=== PATIENT | male | born 1980 | race Caucasian/White ===

== ENCOUNTER 2017-02-11 16:25 | Inpatient (IN) | payer OTHER ==
--- NOTE | ~2017-02-11 | HP ---
Unit #: [id number] #: [id number] Patient: GIORGIO CHÁVEZ [id number] [place] [address] [id number] MR#: [id number] NAME: GIORGIO CHÁVEZ. ROOM: P125 Age: 36 Sex: M Admission Date: 02/11/2017 : 1980 Attending Physician: Jose Enrique Birch M.D. Admitting Physician: Jose Enrique Birch M.D. Primary Care Physician: Primary Care Physician No HISTORY AND PHYSICAL HISTORY OF PRESENT ILLNESS Giorgio is a 36 year old admitted to [address] [place] [address] with depression and verbalizing wanting to hurt himself. He has had other admissions to this facility for the treatment of the same. PAST MEDICAL HISTORY 1. History of migraines 2. History of genital herpes PAST SURGICAL HISTORY Nothing reported. ALLERGIES No known drug allergies. SOCIAL HISTORY Smokes one pack per day. Drinks alcohol rarely. Admits to using marijuana frequently. FAMILY HISTORY Medically noncontributory. REVIEW OF SYSTEMS He does not answer questions appropriately. There are no reports of nausea, vomiting or diarrhea. He has had no cough or increased temperature. CURRENT MEDICATIONS 1. Desyrel 50 mg q.h.s. 2. Topamax 50 mg b.i.d. 3. Zyprexa 10 mg b.i.d. 4. Neurontin 300 mg b.i.d. 5. Milk of Magnesia p.r.n. 6. Maalox p.r.n. 7. Tylenol p.r.n. 8. Nicotine patch 14 mg daily 9. Valtrex 1000 mg daily PHYSICAL EXAMINATION GENERAL: Alert, well-nourished, in no apparent distress. VITAL SIGNS: Blood pressure 110/70, heart rate 80, respirations 16, temperature 98.6. Unit #: [id number] #: [id number] Patient: GIORGIO CHÁVEZ WEIGHT: 184 pounds. HEIGHT: 5'11". SKIN: Warm and dry without rash or lesion. HEENT: Normocephalic. TMs not viewed. Oral and nasal passages clear. Conjunctivae clear. Pupils equal, round and reactive to light and accommodation. Extraocular movements intact. NECK: Supple without lymphadenopathy or thyromegaly. HEART: Regular rate and rhythm without murmur. LUNGS: Clear. ABDOMEN: Soft, nontender. : Not done. EXTREMITIES: No evidence of cyanosis, clubbing or edema. Moves all extremities without focal deficit. NEUROLOGICAL: Grossly within normal limits. Cranial Nerves: II: Visual ayala are intact. III, IV AND : Extraocular movements are intact. Pupils are equal, round and reactive to light. V: Facial sensation is grossly normal. VII: Facial movements and expression are normal. VIII: Auditory acuity grossly intact. IX, X: Uvula is midline. Phonation is normal. XI: Patient shrugs shoulders and turns head normally. XII: Tongue protrudes in the midline. Sensory and Motor Function: Sensory and motor sensation is grossly normal. Motor: moves all extremities well. Coordination: Gait is normal. Deep Tendon Reflexes: Intact. IMPRESSION Psychiatric admission RECOMMENDATIONS PSYCHIATRIC: Per psychiatrist. MEDICAL: I see no contraindications to participating in facility's activities. MEDICAL PROGNOSIS Good. MEDICAL CONDITION Stable. Dictated by... Loree Luna P.A.-C. for Cindi Vicente/luz marina TD: 02/12/2017 19:29 JOB #: [id number] Unit #: [id number] #: [id number] Patient: GIORGIO CHÁVEZ HISTORY AND PHYSICAL Page 1 of 1 X Loree Luna HISTORY AND PHYSICAL
--- NOTE | ~2017-02-11 | DS ---
Unit #: [id number] #: [id number] Patient: SCOTTIE GUADALUPE [id number] [facility] [place] [address] [id number] I MR#: [id number] NAME: SCOTTIE GUADALUPE. ROOM: P263 Age: 36 Sex: M Admission Date: 02/11/2017 : 1980 Discharge Date: 02/17/2017 Attending Physician: Jose Enrique Birch M.D. DISCHARGE SUMMARY IDENTIFYING DATA Mr. Guadalupe is a 36-year-old single white male, who is known to us from previous encounter and is a resident of [place], [place], and was transferred to us from [facility]. DISCHARGE DIAGNOSES Psychiatric: Bipolar disorder, most recent episode depressed, recurrent, moderate, without psychotic features; alcohol abuse, moderate; and cannabis abuse, moderate. Medical: Migraine headaches and genital herpes. Stressors: Moderate psychosocial stressors. HISTORY OF PRESENT ILLNESS Please see initial psychiatric evaluation for details. PAST PSYCHIATRIC HISTORY Please see initial psychiatric evaluation for details. PAST MEDICAL HISTORY Please see initial psychiatric evaluation for details. HOSPITAL COURSE The patient was admitted to the adult psychiatric unit at [facility] [place] and was oriented to the hospital environment. Routine p.r.n. medications were initiated, and he was started back on his home medications and medications were adjusted as the patient was exhibiting some significant anger, agitation, and irritability, and Zyprexa was maintained, but he was talking about significant depression and social anxiety and as such Paxil was initiated and he was closely monitored. He was initially seen to be very withdrawn, seclusive to himself, and showing significant depressive symptoms, but was cooperative with the treatment and did not show any agitation or aggression at this around, which really has been a typical hallmark of his presentation during previous hospitalization. He was taking the medications regularly and was tolerating them fairly well and was able to show a decent and therapeutic response and as such, it was decided that he will be discharged home and will continue treatment on an outpatient basis. DISCHARGE MEDICATIONS Zyprexa 10 mg b.i.d. for mood disorder and Paxil 20 mg in the morning for depression. DISCHARGE CONDITION Unit #: [id number] #: [id number] Patient: SCOTTIE GUADALUPE Stable. PROGNOSIS Fair. Dictated by... Cindi Barclay/justyna TD: 02/17/2017 19:16 JOB #: [id number] DISCHARGE SUMMARY Page 1 of 1 X Jose Enrique Birch MD X DISCHARGE SUMMARY
--- NOTE | ~2017-02-11 | PN ---
Unit #: [id number] #: [id number] Patient: SCOTTIE GUADALUPE [id number] [facility] [address] [place] [address] [id number] I MR#: [id number] NAME: SCOTTIE GUADALUPE. ROOM: 63 Age: 36 Sex: M Admission Date: 02/11/2017 : 1980 Attending Physician: Jose Enrique Birch M.D. Admitting Physician: Jose Enrique Birch M.D. Primary Care Physician: Primary Care Physician [place] PRITCHARD PROGRESS NOTES DATE OF SERVICE 02/15/2017 DISCUSSION Mr. Guadalupe is a 36-year-old white male who was seen today. Chart was reviewed and case was discussed with the staff. She has been anxious, withdrawn, and has not shown any agitation or irritability and has been cooperative with treatment recommendations as she has been taking the medications and tolerating them fairly well with no reported side effects. MENTAL STATUS EXAMINATION Young white male who is casually dressed with fair personal hygiene, appears to be in no acute distress or discomfort. He was awake and alert on interaction with intact orientation. His mood is anxious with congruent affect. His speech is slow and goal-directed. He reports having suicidal ideation but denies any homicidal ideations. His insight and judgment remain slightly impaired. TREATMENT PLAN 1. We will continue him on his current medications and treatment protocol. We will monitor his response to the medications and make further adjustments as needed. 2. We will continue to follow up. Dictated by... Cindi Barclay/gunjang TD: 02/16/2017 07:18 JOB #: [id number] Unit #: [id number] #: [id number] Patient: SCOTTIE GUADALUPE [facility] PROGRESS NOTES Page 1 of 1 X Jose Enrique Birch MD PROGRESS NOTE
--- NOTE | ~2017-02-11 | PN ---
Unit #: [id number] #: [id number] Patient: SCOTTIE GUADALUPE [id number] [facility] [address] [place] [address] [id number] I MR#: [id number] NAME: SCOTTIE GUADALUPE. ROOM: P125 Age: 36 Sex: M Admission Date: 02/11/2017 : 1980 Attending Physician: Jose Enrique Birch M.D. Admitting Physician: Jose Enrique Birch M.D. Primary Care Physician: Primary Care Physician [place] PRITCHARD PROGRESS NOTES DATE OF SERVICE: 02/12/2017 SUBJECTIVE Mr. Guadalupe is a 36-year-old white male who was seen today and chart was reviewed, and case was discussed with the staff. He has been anxious, withdrawn, though has not shown any agitation, irritability, and has been cooperative with treatment recommendations and has been reporting some persistent depressive symptoms stating "I don't feel." He continues to express feelings of hopelessness and suicidal thoughts. MENTAL STATUS EXAMINATION Young white male who was casually dressed with fair personal hygiene, appears to be in no acute distress or discomfort. He was awake and alert on interaction with intact orientation. His mood was anxious and depressed with a congruent affect. His speech was slow and goal directed. He reports having suicidal ideation, but denies any homicidal ideations. His insight and judgment remain slightly impaired. TREATMENT PLAN 1. We will continue him on his current medications and treatment protocol. We will monitor his response and make further adjustments as needed. 2. We will continue to follow up. Dictated by... Cindi Barclay/justyna TD: 02/13/2017 01:22 JOB #: [id number] Unit #: [id number] #: [id number] Patient: SCOTTIE GUADALUPE [facility] PROGRESS NOTES Page 1 of 1 X Jose Enrique Birch MD PROGRESS NOTE
--- NOTE | ~2017-02-11 | PN ---
Unit #: [id number] #: [id number] Patient: SCOTTIE GUADALUPE [id number] [facility] [address] [place] [address] [id number] I MR#: [id number] NAME: SCOTTIE GUADALUPE. ROOM: P125 Age: 36 Sex: M Admission Date: 02/11/2017 : 1980 Attending Physician: Jose Enrique Birch M.D. Admitting Physician: Jose Enrique Birch M.D. Primary Care Physician: Primary Care Physician [place] PRITCHARD PROGRESS NOTES DATE OF SERVICE 02/13/2017 DISCUSSION Mr. Guadalupe is a 36-year-old white male who was seen today. Chart was reviewed and case was discussed with the staff. He has been anxious, withdrawn though has not shown any agitation or irritability. Meanwhile, he has been cooperative with the treatment recommendations and has been taking the medications and tolerating them fairly well with no reported side effects. MENTAL STATUS EXAMINATION Young white male who is casually dressed with fair personal hygiene, appears to be in no acute distress or discomfort. He was awake and alert on interaction with intact orientation. His mood is anxious with congruent affect. Speech is slow and goal-directed. He denies any suicidal or homicidal ideations and also denies any auditory or visual hallucinations. His insight and judgment remain slightly impaired. TREATMENT PLAN We will continue him on his current medications and treatment protocol. We will monitor his response and make further adjustments as needed. Dictated by... Jose Enrique Birch M.D. IAA/bzg TD: 02/14/2017 12:57 JOB #: [id number] [facility] PROGRESS NOTES Page 1 of 1 X Jose Enrique Birch MD PROGRESS NOTE
--- NOTE | ~2017-02-11 | PN ---
Unit #: [id number] #: [id number] Patient: SCOTTIE GUADALUPE [id number] [facility] [address] [place] [address] [id number] I MR#: [id number] NAME: SCOTTIE GUADALUPE. ROOM: P125 Age: 36 Sex: M Admission Date: 02/11/2017 : 1980 Attending Physician: Jose Enrique Birch M.D. Admitting Physician: Jose Enrique Birch M.D. Primary Care Physician: Primary Care Physician [place] PRITCHARD PROGRESS NOTES DATE February 13, 2017 DISCUSSION Mr. Guadalupe is a 36-year-old white male, who was seen today and chart was reviewed and the case was discussed with the staff. He was lying in his bed, sleeping with blunted affect and shook his head and stated that he is not feeling good and reports some increase in depression and anxiety, and goes on to state that he does not feel like taking medication or doing anything. He feels that medications are making him worse and he has never had any luck with any medications and he talks about increasing anxiety and social anxiety, and panic attacks, and persistent depressive symptoms, and wants medications to be adjusted. MENTAL STATUS EXAMINATION Young white male, who was casually dressed with fair personal hygiene and appears to be in no acute distress or discomfort. He was awake and alert on interaction with intact orientation. His mood is anxious and depressed with a congruent affect. His speech is slow and goal-directed. He reports having suicidal ideations but denies any homicidal ideations. His insight and judgment remain significantly impaired. TREATMENT PLAN 1. We will continue him on his current treatment protocol, and will adjust his medications and recommend adding Paxil as an antidepressant, and therapeutic efficacy for social anxiety, and will add 20 mg of that and will monitor his response, and make further adjustments as needed. 2. We will continue to followup. Dictated by... Cindi Barclay/tarah TD: 02/13/2017 11:13 JOB #: [id number] Unit #: [id number] #: [id number] Patient: SCOTTIE GUADALUPE [facility] PROGRESS NOTES Page 1 of 1 X Jose Enrique Birch MD
--- NOTE | ~2017-02-11 | PN ---
Unit #: [id number] #: [id number] Patient: SCOTTIE GUADALUPE [id number] [facility] [address] [place] [address] [id number] I MR#: [id number] NAME: SCOTTIE GUADALUPE. ROOM: P263 Age: 36 Sex: M Admission Date: 02/11/2017 : 1980 Attending Physician: Jose Enrique Birch M.D. Admitting Physician: Jose Enrique Birch M.D. Primary Care Physician: Primary Care Physician [place] PRITCHARD PROGRESS NOTES DATE 02/16/2017 DISCUSSION Mr. Guadalupe is a 36-year-old white male who was seen today and chart was reviewed and case was discussed with the staff. He has been anxious, withdrawn though has not shown any agitation, irritability and has been cooperative with treatment recommendations as he has been taking medications and tolerating them fairly well with no reported side effects. MENTAL STATUS EXAMINATION Young white male who was casually dressed with fair personal hygiene and appears to be in no acute distress or discomfort. He was awake and alert on interaction with intact orientation. His mood was anxious with congruent affect. His speech is slow and goal-directed. He denies any suicidal or homicidal ideation and also denies any auditory or visual hallucinations. His insight and judgement remains slightly impaired. TREATMENT PLAN 1. Will continue on his current medications and treatment protocol. Will monitor his response to the medications and make further adjustments as needed. 2. Will continue to follow up. Dictated by... Cindi Barclay/padilla TD: 02/16/2017 17:59 JOB #: [id number] Unit #: [id number] #: [id number] Patient: SCOTTIE GUADALUPE [facility] PROGRESS NOTES Page 1 of 1 X Jose Enrique Birch MD PROGRESS NOTE
--- NOTE | ~2017-02-11 | PA ---
Unit #: [id number] #: [id number] Patient: SC[facility]IE [facility]AD[facility] [id number] [facility] [address] [place] [address] [id number] I MR#: [id number] NAME: SCOTTIE GUADALUPE. ROOM: P125 Age: 36 Sex: M Admission Date: 02/11/2017 : 1980 Date of Assessment: 02/11/2017 Attending Physician: Jose Enrique Birch M.D. Admitting Physician: Jose Enrique Birch M.D. Primary Care Physician: Primary Care Physician No PSYCHIATRIC ASSESSMENT DATE OF SERVICE 02/11/2017. IDENTIFYING DATA Mr. Guadalupe is a 36-year-old single white male, who is known to us from previous encounter, is a resident of [place], [place], and was transferred to us from [facility]. CHIEF COMPLAINT "I called 911 because I was having thoughts of jumping off a bridge." HISTORY OF PRESENT ILLNESS Mr. Guadalupe is a 36-year-old white male with history of mood disorder, who is known to us from previous encounter, was transferred to us from [facility], where he was taken after he called 911 and told them that he was having thoughts of jumping off the bridge and that he has been having these thoughts for the past 2 weeks. Reports that he has been seeing demons in people's faces and stated that the demons are attacking him and reports that he has difficulty being around people, which impairs his ability to get a job and reports noncompliance with medication due to how the medication make him feel and reports that he missed appointments at [facility] and has been unable to schedule any appointments. He does report increasing depression, anxiety, irritability, feelings of hopelessness and helplessness, and suicidal ideation with intent and plan and as such, recommendation for inpatient level of care was made. The patient was transferred to us. SUBSTANCE ABUSE HISTORY The patient reports history of alcohol and cannabis abuse. PAST PSYCHIATRIC HISTORY The patient has had history of [facility] to being at [facility], as well as outpatient treatment through [facility]. Review of the medical records indicate that he has been diagnosed and treated for bipolar disorder and is currently on a combination of Zyprexa, Topamax, and Neurontin. PAST MEDICAL HISTORY The patient's medical history significant for migraine headaches and genital herpes. ALLERGIES Unit #: [id number] #: [id number] Patient: SCOTTIE GUADALUPE No known medication allergies. PERSONAL AND SOCIAL HISTORY A 36-year-old white male, who reports that he is single, unemployed, and lives by himself and has poor social support system. MENTAL STATUS EXAMINATION Young white male who was casually dressed with fair personal hygiene, appears to be in no acute distress or discomfort. He was awake and alert on interaction with intact orientation to time, place, and person. His mood was anxious and depressed with a congruent affect. His speech was slow and goal directed. He denies any suicidal or homicidal ideations, and also denies any auditory or visual hallucinations. His insight and judgment remain significantly impaired. DIAGNOSTIC IMPRESSION Psychiatric: Bipolar disorder, most recent episode depressed, recurrent, moderate, without psychotic features; alcohol abuse, moderate; cannabis abuse, moderate. Medical: Migraine headaches and genital herpes. Stressors: Moderate psychosocial stressors. TREATMENT PLAN 1. The patient has presented with history of mood disorder and has been decompensating with increasing depression and suicidal ideations and will need inpatient hospitalization for safety and stabilization. We will start him back on his home medications. We will adjust the medications and monitor response. 2. Supportive therapy was provided to the patient. 3. Safe, structured, and nourishing environment will be provided. ESTIMATED LENGTH OF STAY 5 to 7 days. ABILITY TO HELP SELF Limited. WILLINGNESS TO HELP SELF The patient appears to be willing to help self. STRENGTHS 1. Communicative. 2. Cooperative. PROBLEMS 1. Chronic dysphoric symptoms. 2. Poor social support system. DISCHARGE CRITERIA This will be contingent upon the patient's ability to show resolution of his depression and anxiety as well as his ability to stay safe to himself, particularly after discharge from the hospital. Dictated by... Jose Enrique Birch M.D. IAA/modl Unit #: [id number] #: [id number] Patient: SCOTTIE GUADALUPE TD: 02/12/2017 23:44 JOB #: [id number] PSYCHIATRIC ASSESSMENT Page 1 of 1 X Jose Enrique Birch MD PSYCHIATRIC ASSESSMENT
[~2017-02-11 16:25] MED LIST: AUGMENTIN PO; BENADRYL25 MG PO; EXCEDRIN MIGRAI1 TA1 PO; FIORICET 50-321 EACH PO; FIORINAL CAPSUL1 CAP PO; FLEXERIL10 MG PO; LORATADINE; MUCINEX DM1 TAB.SR . PO; NAPROSYN-EC500 M1 PO; NAPROSYN500 MG PO; NAPROXEN PO; NO MEDICATIONS; PHENERGAN PO; PHENERGAN W/CO120 ML PO; PHENERGAN25 MG PO; ROBAXIN500 MG PO; SUDAFED PE COLD1 TAB PO; TOPAMAX50 MG PO; ULTRAM PO; VALTREX PO; VIBRAMYCIN100 M1 PO; VICODIN 5/1 TAB 5/50 PO; VOLTAREN75 MG PO; ZANTAC150 MG PO; ZITHROMAX PO; ZYRTEC PO; ZYRTEC10 M2 PO
== END 2017-02-17 17:53 | disposition home or self-care (01) | DRG 885 ==
LOC: P1S 16:25 → P2L 02-14 17:59
DX: F31.32 Bipolar disorder, current episode depressed, moderate (principal); A60.00 Herpesviral infection of urogenital system, unspecified; F10.10 Alcohol abuse, uncomplicated; F12.10 Cannabis abuse, uncomplicated; G43.909 Migraine, unspecified, not intractable, without status migrainosus; F17.210 Nicotine dependence, cigarettes, uncomplicated